=== PATIENT | male | born 1995 | race African-American/Black ===

== ENCOUNTER 2022-10-03 22:13 | Emergency (ER) | payer OTHER ==
--- NOTE | 2022-10-03 23:57 | ER ---
Nurse's Notes [facility] Name: Mendez Mendez Age: 26 yrs Sex: Male : 1995 Arrival Date: 10/03/2022 Time: :13 Bed 5 Private MD: Diagnosis: Abdominal pain, unspecified Presentation: 10/03 22:30 Chief complaint: Parent and/or Guardian states: He has been having some gastro issues kd3 and pain and we have an appointment on but he seems to be in more pain now and its hard for him to walk. He hasn't had any labs in a long time. 22:30 Method Of Arrival: Ambulatory kd3 22:30 Coronavirus screen: Vaccine status: Patient reports receiving the 2nd dose of the covid kd3 vaccine. Ebola Screen: No symptoms or risks identified at this time. Initial Sepsis Screen: Does the patient meet any 2 criteria? No. Patient's initial sepsis screen is negative. Does the patient have a suspected source of infection? No. Patient's initial sepsis screen is negative. Risk Assessment: Do you want to hurt yourself or someone else? Patient reports no desire to harm self or others. Onset of symptoms was October 03, 2022. 22:30 Acuity: MUNDO 3 kd3 Triage Assessment: 23:00 General: Appears uncomfortable, Behavior is calm, cooperative. Pain: Complains of pain kd3 in abdomen. GI: Reports lower abdominal pain. Historical: - Allergies: 23:00 No Known Allergies; kd3 - Immunization history:: Adult Immunizations up to date. - Social history:: Smoking status: unknown. Screenin:30 [facility] ED Fall Risk Assessment (Adult) History of falling in the last 3 months, vc1 including since admission No falls in past 3 months (0 pts) Confusion or Disorientation No (0 pts) Intoxicated or Sedated No (0 pts) Impaired Gait Yes (1 pt) Mobility Assist Device Used No (0 pt) Altered Elimination No (0 pt) Score/Fall Risk Level 0 - 2 = Low Risk Oriented to surroundings, Maintained a safe environment, Educated pt \T\ family on fall prevention, incl call for assistance when getting out of bed. Abuse screen: Denies threats or abuse. Nutritional screening: No deficits noted. Tuberculosis screening: No symptoms or risk factors identified. Vital Signs: 22:30 BP 120 / 85; Pulse 94; Resp 18; Temp 97.8(TE); Pulse Ox 100% ; Weight 111.13 kg; Height kd3 6 ft. 2 in. ; 22:30 Body Mass Index 31.46 (111.13 kg, 187.96 cm) kd3 ED Course: 22:15 Patient arrived in ED. ja2 22:19 Blair Short MD is Attending Physician. rt 23:00 Triage completed. kd3 23:00 Arm band placed on right wrist. kd3 10/04 00:19 Patient has correct armband on for positive identification. Adult w/ patient. pt vc1 refuses to sit on stretcher and refuses to keep the blood pressure cuff and pulse ox on. Pt is non verbal and autistic and original VS were stable. 00:19 No provider procedures requiring assistance completed. Patient did not have IV access vc1 during this emergency room visit. Administered Medications: 00:17 Drug: Ibuprofen PO Suspension 400 mg Route: PO; vc1 00:17 Follow up: Response: Medication administered at discharge. vc1 00:30 Follow up: Response: Medication administered at discharge. 3 Medication: 00:20 VIS not applicable for this client. vc1 Outcome: 10/03 23:56 Discharge ordered by . rt 10/04 00:18 Discharged to home via wheelchair, with family. vc1 Condition: good Discharge instructions given to family, Instructed on discharge instructions, follow up and referral plans. Demonstrated understanding of instructions, follow-up care. 00:31 Patient left the ED. ll3 Signatures: Millie Alford2 Ilda Bar RN RN 3 Sofia Jj RN RN 3 Karley Dietz RN RN vc1 Blair Short MD MD rt
--- NOTE | 2022-10-03 23:57 | EDPHYS ---
Physician Documentation [facility] Name: Mendez Mendez Age: 26 yrs Sex: Male : 1995 Arrival Date: 10/03/2022 Time: 22:13 Bed 5 Private MD: ED Physician Blair Short HPI: 10/04 01:05 This 26 yrs old Black Male presents to ER via Ambulatory with complaints of Abdominal rt Pain. 01:05 History limited due to patient with severe intellectual disability. History obtained rt mostly per mother. The mother states that she is concerned that the patient has abdominal pain due to him grabbing at his abdomen. States that he was walking hunched over. She states that the patient does have a longstanding history of constipation, refuses to take medications. Patient does have an appointment with his clinic office coordinator in 2 days. The mother denies vomiting, other acute complaints. Symptoms are mild in severity, no other aggravating or alleviating factors.. Historical: - Allergies: 10/03 23:00 No Known Allergies; kd3 - Immunization history:: Adult Immunizations up to date. - Social history:: Smoking status: unknown. ROS: 10/04 01:05 Unable to obtain ROS due to patient's inability to understand questions. rt Exam: 01:05 Head/Face: Normocephalic, atraumatic. Chest/axilla: Normal chest wall appearance and rt motion. Nontender with no deformity. No lesions are appreciated. Cardiovascular: Regular rate and rhythm with a normal S1 and S2. No gallops, murmurs, or rubs. Normal PMI, no JVD. No pulse deficits. Respiratory: Lungs have equal breath sounds bilaterally, clear to auscultation and percussion. No rales, rhonchi or wheezes noted. No increased work of breathing, no retractions or nasal flaring. Abdomen/GI: Soft, non-tender, with normal bowel sounds. No distension or tympany. No guarding or rebound. No evidence of tenderness throughout. Skin: Warm, dry with normal turgor. Normal color with no rashes, no lesions, and no evidence of cellulitis. 01:05 Constitutional: The patient appears Nonverbal, no acute distress Vital Signs: 10/03 22:30 BP 120 / 85; Pulse 94; Resp 18; Temp 97.8(TE); Pulse Ox 100% ; Weight 111.13 kg; Height kd3 6 ft. 2 in. ; 22:30 Body Mass Index 31.46 (111.13 kg, 187.96 cm) kd3 MDM: 22:31 Patient medically screened. rt 10/04 01:05 Differential diagnosis: Constipation, appendicitis, bowel obstruction, UTI. Data rt reviewed: vital signs, nurses notes. ED course: Patient is uncooperative with obtaining labs, CT scan, urine. Mother states that this is quite common for him, is otherwise acting at his baseline. He does have a benign abdominal examination, stable vital signs. I had a long discussion with the mother. I believe that the emotional and physical risks of restraint or sedation to obtain labs are greater than the risk of missed pathology. The mother is in agreement with this. Of note, the patient does have close outpatient follow-up. We will discharge patient home with strict return precautions.. Administered Medications: 00:17 Drug: Ibuprofen PO Suspension 400 mg Route: PO; vc1 00:17 Follow up: Response: Medication administered at discharge. vc1 00:30 Follow up: Response: Medication administered at discharge. ll3 Disposition Summary: 10/03/22 23:56 Discharge Ordered Location: Home rt Problem: new rt Symptoms: are unchanged rt Condition: Stable rt Diagnosis - Abdominal pain, unspecified rt Followup: rt - With: Private Physician - When: 2 - 3 days - Reason: Discharge Instructions: - Discharge Summary Sheet rt - Abdominal Pain, Adult rt Forms: - Medication Reconciliation Form rt - Thank You Letter rt - Antibiotic Education rt - Prescription Opioid Use rt Signatures: Dispatcher [employer] Sofia rOtega RN RN kd3 Karley Dietz RN RN vc1 Blair Short MD MD rt Ilda Bar RN ll3
[2022-10-04] MEDS ORDERED: IBUPROFEN 100 MG/5 ML UCUP ONE (00:12)
[2022-10-04 00:54] VITALS: BP 119/85; TEMP 97.5; O2SAT 97
== END 2022-10-04 00:31 | disposition home or self-care (01) ==
LOC: ER 22:13
DX: R10.9 Unspecified abdominal pain (principal)
CPT/HCPCS: 99283

== ENCOUNTER 2024-02-09 20:43 | Emergency (ER) | payer OTHER ==
--- OUTSIDE RECORDS SUMMARY | 2024-02-09 20:47 | XMS REPORT | Continuity of Care Document ---
Author Name Unknown Address [address] [facility] [address] [place] [address] [facility] Address [address] [facility] [address] [place] [address] Care Team Providers Care Marine Specialist Name Role Phone Ellie Jody HAGAN Primary Care Physician [phone] GAIL LOO Attending Clinician Unavailable Gail Loo Attending Clinician Unavail able ISABELLE Attending Clinician Unavailable YVON MORENO - Attending Clinician Unavailab le GAIL LOO Admitting Clinician Unavailable Gail Loo Admitting Clinician Unavail able ISABELLE Admitting Clinician Unavailable YVON MORENO - Admitting Clinician Unavailab le Payers Payer Name Policy Type Policy Number Effective Date Expirati on Date Source 2 W [id number] [facility] [place] - STAR[place]US (MEDICAID REPLACEMENT - HMO) [id number] 2019 00:00:00 2 W [id number] Problems Condition Name Condition Details Condition Category Status Onset Date Resolution Date Last Treatment Date Treating Clinician Comments Source Hematochez ia Active 01-16 00:00: 00 [facility] Other problems related to medical facilities and other health care Active 06-19 00:00: 00 [facility] Constipati on Active 05-11 00:00: 00 [facility] Obesity Obesity Problem Active 09-21 00:00: 00 [facility] Hypertensi on Active 05-16 00:00: 00 [facility] Autism + Nonverbal Active 05-16 00:00: 00 [facility] Constipati on Constipati on Problem Active 2019-04 00:00: 00 [facility] Mental disorder Mental Disorder Problem Active [facility] Disturbanc e in speech Disturbanc e in Speech Problem Active [facility] Allergies, Adverse Reactions, Alerts Allergy Name Allergy Type Status Severity Reaction(s) Onset Date Inactive Date Treating Clinician Comments Source No Known Allergie s NA Active 2021-04 23:56: 21 [facility] No Known Allergie s NA Active 2021-04 13:42: 52 [facility] No Known Allergie s NA Active 2021-04 12:49: 57 [facility] No Known Allergie s NA Active 2021-04 11:13: 46 [facility] No Known Allergie s NA Active 10-18 12:43: 23 [facility] No Known Allergie s NA Active 10-18 12:42: 33 [facility] No Known Allergie s NA Active 10-17 13:25: 53 [facility] No Known Allergie s NA Active 10-11 09:57: 08 [facility] No Known Allergie s NA Active 10-11 09:56: 54 [facility] No Known Allergie s NA Active 10-11 09:56: 49 [facility] No Known Allergie s NA Active 10-11 09:14: 47 [facility]) No Known Allergie s NA Active 10-10 14:45: 02 [facility] ([facility] No Known Allergie s NA Active 07-14 06:30: 00 [facility] ([facility]) No Known Allergie s NA Active 07-14 06:29: 50 [facility] ([facility]) No Known Allergie s NA Active 07-14 06:29: 38 [facility] ([facility]) No Known Allergie s NA Active 07-14 06:28: 37 [facility] ([facility]) No Known Allergie s NA Active 07-14 06:27: 27 [facility] ([facility]) No Known Allergie s NA Active 07-14 06:25: 38 [facility] ([facility]) Social History Smoking Status Start Date Stop Date Source Never smoker [facility] Medications Ordered Medication Name Filled Medication Name Start Date Stop Date Current Medication? Ordering Clinician Indication Dosage Frequency Signature (SIG) Comments Components Source clonidine HCl 0.2 mg tablet 0 -19 00:00: 00 Yes mg Luiz Serrano Paxil 10 mg tablet 0 19 00:00: 00 Yes 1mg Luiz Serrano clonidine HCl 0.2 mg tablet 0 5-10 00:00: 00 Yes mg Luiz Serrano Paxil 10 mg tablet 0 5-10 00:00: 00 Yes 1mg Luiz Serrano clonidine HCl 0.2 mg tablet 0 4-11 00:00: 00 Yes mg Luiz Serrano Paxil 10 mg tablet 0 4-11 00:00: 00 Yes 1mg Luiz Serrano PAROXETINE HYDROCHLORI DE 10 MG TABS 0 4-11 00:00: 00 Yes Luiz Serrano clonidine HCl 0.2 mg tablet 0 3-08 00:00: 00 Yes mg Luiz Serrano Paxil 10 mg tablet 0 3-08 00:00: 00 Yes 1mg Luiz Serrano Colace 100 mg Cap Colace 100 mg Cap 0 2-28 00:00: 00 Yes [facility] clonidine HCl 0.2 mg tablet 0 1-24 00:00: 00 Yes mg Luiz Serrano hydroxyzine HCl 25 mg tablet 05-16 00:00: 00 Yes mg Luiz Serrano LACTULOSE 10 GM/15ML SOLN 05-16 00:00: 00 Yes Luiz Serrano polyethylen e glycol 3350 17 gram/dose oral powder 05-11 00:00: 00 Yes gram/do se Luiz Serrano TAKE 1 TABLET BY MOUTH IN THE MORNING AND 1 TABLET IN THE EVENING FOR 5 DAYS 12-27 00:00: 00 Yes Luiz Serrano CLONIDINE 0.2MG TABLETS 11-23 00:00: 00 Yes Luiz Serrano Azithromyci n 250 mg Tab Azithromyci n 250 mg Tab 2021-04 00:00: 00 Yes [facility] clonidine HCl 0.2 mg tablet Take 1 tablet twice a day by oral route. clonidine HCl 0.2 mg tablet Take 1 tablet twice a day by oral route. No clonidine HCl 0.2 mg tablet Take 1 tablet twice a day by oral route. [facility] escitalopra m 10 mg tablet escitalopra m 10 mg tablet No escitalopr am 10 mg tablet [facility] escitalopra m oxalate 10 mg tabs escitalopra m oxalate 10 mg tabs No escitalopr am oxalate 10 mg tabs [facility] Gummi Bear Multivitami n chewable tablet Take 1 tablet by oral route. [facility] Multivitami n chewable tablet Take 1 tablet by oral route. No 1 [facility] Multivitam in chewable tablet Take 1 tablet by oral route. [facility] Pepcid 20 mg tablet Take 1 tablet twice a day by oral route. Pepcid 20 mg tablet Take 1 tablet twice a day by oral route. No 1 BID Pepcid 20 mg tablet Take 1 tablet twice a day by oral route. [facility] clonidine HCl 0.2 mg tablet Take 1 tablet twice a day by oral route. clonidine HCl 0.2 mg tablet Take 1 tablet twice a day by oral route. No clonidine HCl 0.2 mg tablet Take 1 tablet twice a day by oral route. [facility] clotrimazol e-betametha sone 1 %-0.05 % topical cream Lotrisone cream use b.i.d. for next 5 days clotrimazol e-betametha sone 1 %-0.05 % topical cream Lotrisone cream use b.i.d. for next 5 days No clotrimazo le-betamet hasone 1 %-0.05 % topical cream Lotrisone cream use b.i.d. for next 5 days [facility] escitalopra m 10 mg tablet escitalopra m 10 mg tablet No escitalopr am 10 mg tablet [facility] escitalopra m oxalate 10 mg tabs escitalopra m oxalate 10 mg tabs No escitalopr am oxalate 10 mg tabs [facility] Gummi Bear Multivitami n chewable tablet Take 1 tablet by oral route. [facility] Multivitami n chewable tablet Take 1 tablet by oral route. No 1 [facility] Multivitam in chewable tablet Take 1 tablet by oral route. [facility] Miralax 17 gram/dose oral powder Take 17 g by oral route. Miralax 17 gram/dose oral powder Take 17 g by oral route. No 17g Miralax 17 gram/dose oral powder Take 17 g by oral route. [facility] Pepcid 20 mg tablet Take 1 tablet twice a day by oral route. Pepcid 20 mg tablet Take 1 tablet twice a day by oral route. No 1 BID Pepcid 20 mg tablet Take 1 tablet twice a day by oral route. [facility] clonidine HCl 0.2 mg tablet Take 1 tablet twice a day by oral route. clonidine HCl 0.2 mg tablet Take 1 tablet twice a day by oral route. No clonidine HCl 0.2 mg tablet Take 1 tablet twice a day by oral route. [facility] clotrimazol e-betametha sone 1 %-0.05 % topical cream Lotrisone cream use b.i.d. for next 5 days clotrimazol e-betametha sone 1 %-0.05 % topical cream Lotrisone cream use b.i.d. for next 5 days No clotrimazo le-betamet hasone 1 %-0.05 % topical cream Lotrisone cream use b.i.d. for next 5 days [facility] escitalopra m 10 mg tablet escitalopra m 10 mg tablet No escitalopr am 10 mg tablet [facility] Gummi Bear Multivitami n chewable tablet Take 1 tablet by oral route. [facility] Multivitami n chewable tablet Take 1 tablet by oral route. No 1 [facility] Multivitam in chewable tablet Take 1 tablet by oral route. [facility] Miralax 17 gram/dose oral powder Take 17 g by oral route. Miralax 17 gram/dose oral powder Take 17 g by oral route. No 17g Miralax 17 gram/dose oral powder Take 17 g by oral route. [facility] Pepcid 20 mg tablet Take 1 tablet twice a day by oral route. Pepcid 20 mg tablet Take 1 tablet twice a day by oral route. No 1 BID Pepcid 20 mg tablet Take 1 tablet twice a day by oral route. [facility] clonidine HCl 0.2 mg tablet Take 1 tablet twice a day by oral route. clonidine HCl 0.2 mg tablet Take 1 tablet twice a day by oral route. No clonidine HCl 0.2 mg tablet Take 1 tablet twice a day by oral route. [facility] escitalopra m 10 mg tablet escitalopra m 10 mg tablet No escitalopr am 10 mg tablet [facility] escitalopra m oxalate 10 mg tabs escitalopra m oxalate 10 mg tabs No escitalopr am oxalate 10 mg tabs [facility] G[facility]mi Bear Multivitami n chewable tablet Take 1 tablet by oral route. [facility] Multivitami n chewable tablet Take 1 tablet by oral route. No 1 G[facility] Multivitam in chewable tablet Take 1 tablet by oral route. [facility] Pepcid 20 mg tablet Take 1 tablet twice a day by oral route. Pepcid 20 mg tablet Take 1 tablet twice a day by oral route. No 1 BID Pepcid 20 mg tablet Take 1 tablet twice a day by oral route. [facility] clonidine hydrochlori de 0.2 mg tabs clonidine hydrochlori de 0.2 mg tabs No clonidine hydrochlor kaden 0.2 mg tabs [facility] lactulose 10 gm/15ml soln lactulose 10 gm/15ml soln No lactulose 10 gm/15ml soln [facility] lactulose 20 gram/30 mL oral solution Take 15 mL every day by oral route. lactulose 20 gram/30 mL oral solution Take 15 mL every day by oral route. No lactulose 20 gram/30 mL oral solution Take 15 mL every day by oral route. [facility] nitrofurant oin monohydrate /macrocryst als 100 mg capsule Take 1 capsule every 12 hours by oral route. nitrofurant oin monohydrate /macrocryst als 100 mg capsule Take 1 capsule every 12 hours by oral route. No nitrofuran toin monohydrat e/macrocry stals 100 mg capsule Take 1 capsule every 12 hours by oral route. [facility] polyethylen e glycol 3350 17 gram oral powder packet polyethylen e glycol 3350 17 gram oral powder packet No polyethyle ne glycol 3350 17 gram oral powder packet [facility] Stool Softener 100 mg capsule Take 1 capsule every day by oral route. Stool Softener 100 mg capsule Take 1 capsule every day by oral route. No Stool Softener 100 mg capsule Take 1 capsule every day by oral route. [facility] clotrimazol e-betametha sone 1 %-0.05 % topical cream Lotrisone cream use b.i.d. for next 5 days clotrimazol e-betametha sone 1 %-0.05 % topical cream Lotrisone cream use b.i.d. for next 5 days No clotrimazo le-betamet hasone 1 %-0.05 % topical cream Lotrisone cream use b.i.d. for next 5 days [facility] Vital Signs Vital Name Observation Time Observation Value Comments S ource BP Diastolic 2022-09-21 00:00:00 78 mm[Hg] [facility] Height 2022-09-21 00:00:00 70 [in_i] [facility] BMI (Body Mass Index) 2022-09-21 00:00:00 35.2 kg/m2 [facility] BP Systolic 2022-09-21 00:00:00 110 mm[Hg] [facility] Body Weight 2022-09-21 00:00:00 245 [lb_av] [facility] BP Diastolic 2022-07-19 00:00:00 100 mm[Hg] [facility] Height 2022-07-19 00:00:00 70 [in_i] [facility] BMI (Body Mass Index) 2022-07-19 00:00:00 35.3 kg/m2 [facility] BP Systolic 2022-07-19 00:00:00 144 mm[Hg] [facility] Body Weight 2022-07-19 00:00:00 246 [lb_av] [facility] BP Diastolic 2022-01-19 00:00:00 64 mm[Hg] [facility] Height 2022-01-19 00:00:00 70 [in_i] [facility] BMI (Body Mass Index) 2022-01-19 00:00:00 34.9 kg/m2 [facility] BP Systolic 2022-01-19 00:00:00 110 mm[Hg] [facility] Body Weight 2022-01-19 00:00:00 243.5 [lb_av] [facility] BP Diastolic 2021-09-07 00:00:00 82 mm[Hg] [facility] Height 2021-09-07 00:00:00 70 [in_i] [facility] BMI (Body Mass Index) 2021-09-07 00:00:00 34.3 kg/m2 [facility] BP Systolic 2021-09-07 00:00:00 138 mm[Hg] [facility] Body Weight 2021-09-07 00:00:00 239 [lb_av] [facility] BP Diastolic 2021-03-01 00:00:00 88 mm[Hg] [facility] Height 2021-03-01 00:00:00 70 [in_i] [facility] BMI (Body Mass Index) 2021-03-01 00:00:00 35.7 kg/m2 [facility] BP Systolic 2021-03-01 00:00:00 154 mm[Hg] [facility] Body Weight 2021-03-01 00:00:00 249 [lb_av] [facility] BP Diastolic 2020-10-18 00:00:00 62 mm[Hg] [facility] Height 2020-10-18 00:00:00 70 [in_i] [facility] BMI (Body Mass Index) 2020-10-18 00:00:00 37.3 kg/m2 [facility] BP Systolic 2020-10-18 00:00:00 114 mm[Hg] [facility] Body Weight 2020-10-18 00:00:00 260 [lb_av] [facility] Respiratory Rate 2024-01-17 09:11:15 14 /min [facility] BP Systolic 2023-12-11 14:28:00 145 mm[Hg] [facility] BP Diastolic 2023-12-11 14:28:00 125 mm[Hg] [facility] Weight Measured 2023-12-11 14:28:00 210.20 pounds Luiz F Zach Height Measured 2023-12-11 14:28:00 73.23 inches Luiz F Zach Body Temperature 2023-12-11 14:28:00 98.20 degrees Luiz F Zach Heart Rate 2023-12-11 14:28:00 88.00 /min Radha en F [facility] Respiratory Rate 2023-12-11 14:28:00 18.00 /min Luiz F Zach BP Systolic 2023-08-02 15:07:00 Step [facility] BP Diastolic 2023-08-02 15:07:00 Rob phen [facility] Weight Measured 2023-08-02 15:07:00 211.00 pounds Luiz F Zach Height Measured 2023-08-02 15:07:00 73.23 inches Luiz F Zach Body Temperature 2023-08-02 15:07:00 98.30 degrees Luiz F Zach Heart Rate 2023-08-02 15:07:00 108.00 /min Step [facility] Respiratory Rate 2023-08-02 15:07:00 18.00 /min Luiz F Zach BP Systolic 2023-06-29 15:17:00 168 mm[Hg] [facility] BP Diastolic 2023-06-29 15:17:00 125 mm[Hg] [facility] Weight Measured 2023-06-29 15:17:00 215.40 pounds Luiz F Zach Height Measured 2023-06-29 15:17:00 73.23 inches Luiz F Zach Body Temperature 2023-06-29 15:17:00 98.20 degrees Luiz F Zach Heart Rate 2023-06-29 15:17:00 85.00 /min Radha en F [facility] Respiratory Rate 2023-06-29 15:17:00 18.00 /min Luiz F Zach Height 2023-06-20 14:10:31 182.88 cm [facility] Weight 2023-06-20 14:10:31 106.56164427 046157 [facility] Body [facility] ([facility] 2023-06-20 14:10:31 31.87 kg/m2 [facility] BP Diastolic 2023-06-20 14:10:31 80 mm[Hg] [facility] BP Systolic 2023-06-20 14:10:31 120 mm[Hg] [facility] Weight 2023-05-11 10:50:41 106.01497546 944709 kg [facility] Body Mass Index (BMI) 2023-05-11 10:50:41 31.87 kg/m2 [facility] Height 2022-05-16 15:26:41 182.88 cm [facility] Weight 2022-05-16 15:26:41 108.53549860 493822 kg [facility] Body Mass Index (BMI) 2022-05-16 15:26:41 32.55 kg/m2 [facility] BP Diastolic 2022-05-16 15:26:41 78 mm[Hg] [facility] BP Systolic 2022-05-16 15:26:41 128 mm[Hg] [facility] Procedures Procedure Date / Time Performed Performing Clinician Source Phone (patient, parent, or guardian); 5-10 minutes of medical discussion (no modifier 95) 2024-01-17 09:11:15 [facility] Televideo 30-39min; chronic exacerbation, 2 stable chronic or 1 acute illness add modifier 95 2023-06-20 14:10:31 [facility] Med[facility] List Documented (1159F) 2023-06-20 14:10:31 [facility] Medication Review by prescribing provider or pharmacist documented (1160F) 2023-06-20 14:10:31 [facility] Pain Assessment - NO pain documented (1126F) 2023-06-20 14:10:31 [facility] BMI obtained (3008F) 2023-06-20 14:10:31 [facility] Advance Care Directive Advance care planning discussion documented in the medical record (1158F) 2023-06-20 14:10:31 [facility] Advance care planning discussed and documented advance care plan or surrogate decision-maker was documented in the medical record. (1123F) 2023-06-20 14:10:31 [facility] SBP < 130 (3074F) 2023-06-20 14:10:31 [facility] DBP 80-89 (3079F) 2023-06-20 14:10:31 [facility] Functional Status Assessed (1170F) 2023-06-20 14:10:31 [facility] Phone (patient, parent, or guardian); 11-20 minutes of medical discussion (no modifier 95) 2023-05-11 10:50:41 [facility] BMI obtained (3008F) 2023-05-11 10:50:41 [facility] Televideo new patient, 30-44min 1 stable chronic or 2 minor; add modifier 95 2022-05-16 15:26:41 [facility] BMI obtained (3008F) 2022-05-16 15:26:41 [facility] SBP < 130 (3074F) 2022-05-16 15:26:41 [facility] DBP <80 (3078F) 2022-05-16 15:26:41 [facility] Advance Care Directive Advance care planning discussion documented in the medical record (1158F) 2022-05-16 15:26:41 [facility] Pain Assessment - NO pain documented (1126F) 2022-05-16 15:26:41 [facility] Medication List Documented (1159F) 2022-05-16 15:26:41 [facility] Medication Review by prescribing provider or pharmacist documented (1160F) 2022-05-16 15:26:41 [facility] Functional Status Assessed (1170F) 2022-05-16 15:26:41 [facility] US, breast, unilateral 2021-09-07 00:00:00 [facility] Plan of Care Planned Activity Planned Date Details Comments Source Diagnostic Test Pending 2021-09-07 00:00:00 prolactin, serum [code = prolactin, serum] [facility] Diagnostic Test Pending 2021-09-07 00:00:00 thyroid panel, serum [code = thyroid panel, serum] [facility] Diagnostic Test Pending 2021-09-07 00:00:00 CBC w/ diff [code = CBC w/ diff] [facility] Diagnostic Test Pending 2021-09-07 00:00:00 CMP, serum or plasma [code = CMP, serum or plasma] [facility] Diagnostic Test Pending 2021-09-07 00:00:00 glycohemoglobin, total, blood [code = glycohemoglobin, total, blood] [facility] Diagnostic Test Pending 2021-09-07 00:00:00 lipid panel, serum [code = lipid panel, serum] [facility] Encounters Start Date/Time End Date/Time Encounter Type Admission Type Attending [facility] Care Department Encounter ID Source 2021-10-11 09:14:50 Outpatient 3 GAIL LOO SURYA [facility] [id number] [facility] ([facility]) 2021-09-01 13:17:03 Outpatient [facility] [id number] [facility] 2021-04-27 10:57:00 Outpatient [address] [facility] [id number] [facility] ([facility]) 2021-02-06 09:34:14 Outpatient [facility] [id number] [facility] 2019-07-11 16:04:00 Inpatient Gail Loo [facility] [id number] [facility] 2024-01-17 00:00:00 2024-01-17 00:00:00 Aurora LESLIE [facility] ([place]) [id number] [facility] 2024-01-04 13:43:49 2024-01-04 13:43:49 Outpatient [facility] [id number] Luiz Galeano Zach 2023-12-11 14:10:05 2023-12-11 14:10:05 Outpatient [facility] [id number] Luiz Galeano Zach 2023-12-11 00:00:00 2023-12-11 00:00:00 Outpatient Visit [facility] [id number] Luiz Galeano Zach 2023-08-02 14:41:10 2023-08-02 14:41:10 Outpatient [facility] [id number] Luiz Serrano 2023-06-29 14:50:08 2023-06-29 14:50:08 Outpatient [facility] [id number] Luiz Serrano 2023-06-20 00:00:00 2023-06-20 00:00:00 Autistic disorder Aphasia Essential (primary) hypertensi on Constipati on, unspecifie d Other problems related to medical facilities and other health care [facility] ([place] [id number] [facility] 2023-05-11 00:00:00 2023-05-11 00:00:00 Unspecifie d abdominal pain Constipati on, unspecifie d Diarrhea, unspecifie d [facility], ([place]) [id number] 288 [facility] 2022-09-21 00:00:00 2022-09-21 00:00:00 Outpatient LALITHA FLOR [facility] [id number] [facility] 2022-09-21 00:00:00 2022-09-21 00:00:00 Royer Murdock MD: [address] [place] [address] , Ph. [phone] [facility] ZURI KEENAN Phelan Beck ZHANG/ELAINE/ZURI VAUGHAN_[place] [id number] [facility] 2022-07-19 00:00:00 2022-07-19 00:00:00 Outpatient LALITHA FLOR [facility] [id number] [facility] 2022-07-19 00:00:00 2022-07-19 00:00:00 Gail Loo MD: [address] [place] [address] , Ph. [facility] Beck [facility] Beck [facility] [id number] [facility] 2022-05-16 00:00:00 2022-05-16 00:00:00 Essential (primary) hypertensi on Aphasia [facility] ([place] [id number] Vilma e 2022-03-29 17:13:00 2022-03-29 19:42:00 Emergency Department Patient Visit [facility] [id number] 2022-03-29 11:13:00 2022-03-29 13:42:00 Outpatient Encounter 1 YVON MORENO [facility] [id number] [facility] 2022-01-20 00:00:00 2022-01-20 00:00:00 Outpatient LALITHA FLOR [facility] [id number] [facility] 2022-01-19 00:00:00 2022-01-19 00:00:00 Outpatient LALITHA FLOR [facility] [id number] [facility] 2022-01-19 00:00:00 2022-01-19 00:00:00 Gail Loo MD: [address] [place] [address] , Ph. [facility] ZURI [facility]ZURI [facility] [id number] [facility] 2022-01-05 00:00:00 2022-01-05 00:00:00 Outpatient LALITHA FLOR [facility] [id number] [facility] 2021-10-17 18:25:00 2021-10-17 18:25:00 Outpatient Encounter [facility] [id number] 2021-10-17 13:25:00 2021-10-17 13:25:00 Outpatient 3 GAIL LOO [facility] [id number] [facility] 2021-10-17 13:25:00 2021-10-17 13:25:00 Outpatient Encounter [facility] [id number] [facility] 2021-10-10 19:36:00 2021-10-10 19:36:00 Outpatient Encounter [facility] [id number] 2021-10-10 14:36:00 2021-10-10 14:36:00 Outpatient Encounter [facility] [id number] [facility] ([facility]) 2021-10-10 14:36:00 2021-10-10 14:36:00 Outpatient 3 GAIL LOO [facility] [id number] [facility] 2021-09-08 01:11:00 2021-09-08 01:11:00 Outpatient LALITHA FLOR [facility] [id number] [facility] 2021-09-07 05:09:00 2021-09-07 05:09:00 Outpatient LALITHA FLOR [facility] [id number] [facility] 2021-09-07 00:00:00 2021-09-07 00:00:00 Outpatient Gail Loo [facility] [id number] 2021-09-07 00:00:00 2021-09-07 00:00:00 Gail Loo MD: [address] [place] [address] , Ph. [facility] ZURI KEENAN [facility] [id number] [facility] 2021-03-01 05:29:00 2021-03-01 05:29:00 Outpatient LALITHA FLOR [facility] [id number] [facility] 2021-03-01 00:00:00 2021-03-01 00:00:00 Outpatient Gail Loo [facility] [id number] 2021-03-01 00:00:00 2021-03-01 00:00:00 Gail Loo MD: [address] [place] [address] , Ph. [facility] [id number] [facility] 2020-10-18 06:12:00 2020-10-18 06:12:00 Outpatient LALITHA FLOR [facility] [id number] [facility] 2020-10-18 00:00:00 2020-10-18 00:00:00 Outpatient Gail Loo [facility] [id number] 2020-10-18 00:00:00 2020-10-18 00:00:00 Gail Loo MD: [address] [place] [address] , Ph. [facility] [id number] [facility] Results Test Description Test Time Test Comments Results Result Co mments Source Influenza virus A+B Ag [Presence] in Nose by [id number] 13:04:00* Test Item Value Reference Range Interpretation Comme nts Reagent Lot number (test cod e = 97436-2) [id number] N Expiration date (test code = 80823-5) [id number] N (Cash)COVID SYMPTOMATIC ER [id number] 12:46:00* Test Item Value Reference Range Interpretation Comme nts CORONAVIRUS (COVID-19)BY PCR (test code = JQS24LYC) POSITIVE SARS-CoV-2 (COVID-19) N gene [Presence] in [id number] 12:46:00Positive (Cash)ULTRASOUND [id number] 14:05:00 [facility] : 1995 Sex: M[address] [address]GEXIYBEDYU IMAGING REPORTPatient Name: YESSENIA SCOTT DDate of Service: 16-58-7705Dud: 25 Sex: M Order #: [id number] [facility] 1995 X-[facility] Number: [id number] Record Number: [id number] Hospital Number: [id number] Physician: MAR LOOAROrejiering Physician: ZOHREH LOO ULTRASOUND BREAST 10/17/2021 1:30 PMHISTORY: Large LEFT breastCorrelation studies: None availableAll 4 quadrants of the left breast, axillary and retroareolar regions wereexamined sonographically.FINDINGS:There is no sonographic evidence for cyst, mass, fluid collection ormalignancy at this time. The axillary lymph nodes are also sonographicallyunremarkable.IMPRESSION:No sonographic evidence for malignancy, mass or cyst.BI-RADS category 1, negative..The study was performed by Ming Velez RDMS ().Electronically Signed By: Josr Babcock M.D., 10/17/2021 2:02 PMLegally authenticated by SADIQ MEYERS 2021-10-17 14:02:46 Notes Date/Time Note Provider Source Giselle Hewitt [facility]2024-09-26 09:28:14 [facility]24-[facility]-26 09:28:14 Giselle Deible [facility]2024-09-26 09:28:14Not Available Giselle Deible [facility]2024-09-26 09:28:14 Giselle Deible [facility]2024-09-26 09:28:14 Giselle Deible [facility]2024-08-20 00:00:00 [facility]2022-06-27 14:02:[address] [address] DIAGNOSTIC IMAGING REPORT Patient Name: YESSENIA SCOTT Date of Service: 10-17-2021 Age: 25 Sex: M Order #: [id number] Room: [facility] : 1995 X-Ray Number: [id number] Hospital Number: [id number] Admitting Physician: GAIL LOO Ordering Physician: GAIL LOO LEFT ULTRASOUND BREAST 10/17/2021 1:30 PM HISTORY: Large LEFT breast Correlation studies: None available All 4 quadrants of the left breast, axillary and retroareolar regions were examined sonographically. FINDINGS: There is no sonographic evidence for cyst, mass, fluid collection or malignancy at this time. The axillary lymph nodes are also sonographically unremarkable. IMPRESSION: No sonographic evidence for malignancy, mass or cyst. BI-RADS category 1, negative.. The study was performed by Ming Velez RDMS (). Electronically Signed By: Josr Babcock M.D., 10/17/2021 2:02 PM Legally authenticated by SADIQ MEYERS 2021-10-17 14:02:46KELLY BABCOCK 2021-10-17 13:38:16 PATIENT OPEN ORDERS Code System Description Frequency Occurrences Priority [place] [address] [facility] Breast US ONE TIME 0 Routine October 17, 2021 6:30:00 PM [facility] CINDA HUANG [id number] on October 17, 2021 6:30:00 PM [facility] SCHEDULED PROCEDURES Code System Description Status Scheduled Date Updated By Patient scheduled procedure information is not available. [facility]2022-06-27 13:38:16 CARE cash surrender calculator Role on Team Status Start Date End Date Update d By OUMOU Arceo PCP normal October 11, 2021 2:14:20 PM [place] October 17, 2021 6:25:00 PM [facility] ALEXANDRO on October 11, 2021 2:14:20 PM [facility] MAMMOLOGIX Referring normal October 11, 2021 2:14:20 PM [facility] October 17, 2021 6:25:00 PM [facility] ALEXANDRO on October 11, 2021 2:14:20 PM [facility] CINDA HUANG Attending normal October 11, 2021 2:14:20 PM [facility] October 17, 2021 6:25:00 PM [facility] ALEXANDRO on October 11, 2021 2:14:20 PM [facility] CINDA HUANG Admitting normal October 11, 2021 2:14:20 PM [facility] October 17, 2021 6:25:00 PM [facility] ALEXANDRO on October 11, 2021 2:14:[address] [facility]
--- NOTE | 2024-02-09 21:32 | ER ---
Nurse's Notes [facility] Name: Mendez Mendez Age: 28 yrs Sex: Male : 1995 Arrival Date: 02/09/2024 Time: 20:43 Bed IW1 Private MD: Diagnosis: Acute fall from standing, Normal Medical Examination Presentation: 02/08 21:18 Chief complaint: Parent and/or Guardian states: Mom states [place] the park. dd2 Mom states did not see the actual fall but turned around and pt was trying to get off the ground. Mom denies LOC. Mom states pt is non-verbal but limping on LLE. Coronavirus screen: At this time, the client does not indicate any symptoms associated with coronavirus-19. Ebola Screen: No symptoms or risks identified at this time. Initial Sepsis Screen: Does the patient meet any 2 criteria? No. Patient's initial sepsis screen is negative. Does the patient have a suspected source of infection? No. Patient's initial sepsis screen is negative. Risk Assessment: Do you want to hurt yourself or someone else? Unable to obtain. Onset of symptoms was February 09, 2024. 21:18 Method Of Arrival: Ambulatory dd2 21:18 Acuity: MUNDO 4 dd2 Triage Assessment: 21:23 General: Appears in no apparent distress. Behavior is calm, cooperative. Pain: Unable dd2 to use pain scale. Patient appears quiet, NON-VERBAL AUTISM. PT DOES NOT GRIMACE OR WITHDRAW. Historical: - Allergies: 21:23 No Known Allergies; dd2 - PMHx: 21:23 NON-VERBAL AUTISM; dd2 - PSHx: 21:23 None; dd2 - Immunization history:: Adult Immunizations up to date. - Infectious Disease History:: Denies. - Social history:: Smoking status: Patient denies any tobacco usage or history of. - Family history:: not pertinent. Vital Signs: 21:18 BP 123 / 74; Pulse 117; Resp 16; Temp 98.1; Pulse Ox 99% ; Weight 102.06 kg; Height 6 dd2 ft. 0 in. ; Pain 0/10; 21:18 Body Mass Index 30.52 (102.06 kg, 182.88 cm) dd2 21:18 Pain Scale: Non-Verbal dd2 ED Course: 20:48 Patient arrived in ED. [email or web address] 20:51 Patrice Floyd MD is Attending Physician. sp4 21:23 Triage completed. dd2 21:25 Arm band placed on ON MOMS WRIST. Patient placed in waiting room, Patient notified of dd2 wait time. Administered Medications: No medications were administered Outcome: 21:31 Discharge ordered by . sp4 21:37 Discharged to home ambulatory, dd2 21:37 Condition: stable 21:37 Discharge instructions given to ward helper, Instructed on discharge instructions, follow up and referral plans. Demonstrated understanding of instructions, follow-up care, 21:37 Patient left the ED. dd2 Signatures: Annalise Andrea [email or web address] Patrice Floyd MD MD sp4 BARBARA MORENO RN RN dd2
--- NOTE | 2024-02-09 21:32 | EDPHYS ---
Physician Documentation [facility] Name: Mendez Mendez Age: 28 yrs Sex: Male : 1995 Arrival Date: 02/09/2024 Time: 20:43 Bed IW1 Private MD: ED Physician Patrice Floyd HPI: 02/08 20:54 This 28 yrs old Black Male presents to ER via Unassigned with complaints of Fall Injury.sp4 02/09 06:57 28-year-old male presents with complaint of acute ground-level fall. Patient has autism sp4 and not able to explain himself. . Historical: - Allergies: 02/08 21:23 No Known Allergies; dd2 - PMHx: 21:23 NON-VERBAL AUTISM; dd2 - PSHx: 21:23 None; dd2 - Immunization history:: Adult Immunizations up to date. - Infectious Disease History:: Denies. - Social history:: Smoking status: Patient denies any tobacco usage or history of. - Family history:: not pertinent. ROS: 02/09 06:57 Constitutional: Negative for fever, chills, and weight loss, positive for ground-level sp4 fall All other systems are negative, Exam: 06:57 Constitutional: This is a well developed, well nourished patient who is awake, alert, sp4 and in no acute distress. Head/Face: Normocephalic, atraumatic. Eyes: Pupils equal round and reactive to light, extra-ocular motions intact. Lids and lashes normal. Conjunctiva and sclera are not injected. Cornea within normal limits. Periorbital areas with no swelling, redness, or edema. ENT: Nares patent. No nasal discharge, no septal abnormalities noted. Tympanic membranes are normal and external auditory canals are clear. Oropharynx with no redness, swelling, or masses, exudates, or evidence of obstruction, uvula midline. Mucous membranes moist. Neck: Trachea midline, no thyromegaly or masses palpated, and no cervical lymphadenopathy. Supple, full range of motion without nuchal rigidity, or vertebral point tenderness. Chest/axilla: Normal chest wall appearance and motion. Nontender with no deformity. No lesions are appreciated. Cardiovascular: Regular rate and rhythm with a normal S1 and S2. No gallops, murmurs, or rubs. Normal PMI, no JVD. No pulse deficits. Respiratory: Lungs have equal breath sounds bilaterally, clear to auscultation and percussion. No rales, rhonchi or wheezes noted. No increased work of breathing, no retractions or nasal flaring. Abdomen/GI: Soft, with normal bowel sounds. No distension or tympany. No guarding or rebound. No evidence of tenderness throughout. Back: No spinal tenderness. No costovertebral tenderness. Skin: Warm, dry with normal turgor. Normal color with no rashes, no lesions, and no evidence of cellulitis. MS/ Extremity: Pulses equal, no cyanosis. Neurovascular intact. Full, normal range of motion. Neuro: Awake and alert, Cranial nerves II-XII grossly intact. Motor strength 5/5 in all extremities. Sensory grossly intact. Patient is autistic not able to communicate, nonverbal Vital Signs: 02/08 21:18 BP 123 / 74; Pulse 117; Resp 16; Temp 98.1; Pulse Ox 99% ; Weight 102.06 kg; Height 6 dd2 ft. 0 in. ; Pain 0/10; 21:18 Body Mass Index 30.52 (102.06 kg, 182.88 cm) dd2 21:18 Pain Scale: Non-Verbal dd2 MDM: 21:31 Medical Screening Exam initiated sp4 02/09 06:57 Differential diagnosis: abrasion, closed head injury, contusion, fracture, laceration. sp4 Data reviewed: vital signs, nurses notes. ED course: Based on full head to toe physical exam patient has no sign of acute traumatic injury. Patient stable for discharge home.. 07:00 Data reviewed: old medical records. sp4 Administered Medications: No medications were administered Disposition: 07:00 Chart complete. sp4 Disposition Summary: 02/09/24 21:31 Discharge Ordered Notes: Location: Home sp4 Problem: new sp4 Symptoms: have improved sp4 Condition: Stable sp4 Diagnosis - Acute fall from standing, Normal Medical Examination sp4 Followup: sp4 - With: Private Physician - When: 7 - 10 days - Reason: Recheck today's complaints Discharge Instructions: - Discharge Summary Sheet sp4 - Medical Screening Exam sp4 Forms: - Patient Portal Instructions sp4 Signatures: Patrice Floyd MD MD sp4 JOSH, BARBARA, RN RN dd2
[2024-02-10 01:56] VITALS: BP 123/74; TEMP 98.1; O2SAT 99
== END 2024-02-09 21:37 | disposition home or self-care (01) ==
LOC: ER 20:43
DX: Z04.3 Encounter for examination and observation following other accident (principal); W18.30XA Fall on same level, unspecified, initial encounter; F84.0 Autistic disorder
CPT/HCPCS: 99282